=== PATIENT | female | born 1955 | race Caucasian/White ===

== ENCOUNTER → 2017-12-15 | Outpatient (CLI) | payer OTHER ==
[~2017-12-15] MED LIST: AZEL205. NS
== END ==
LOC: LAB 11:29
PROVIDERS: ATTEND Otolaryngology
DX: H83.2X1 Labyrinthine dysfunction, right ear (principal); R26.81 Unsteadiness on feet
CPT/HCPCS: 36415; 82565

== ENCOUNTER → 2017-12-16 | Outpatient (CLI) | payer OTHER ==
[~2017-12-16] MED LIST changes: +GADOBENATE 529MG/1ML 15ML VIAL IVP ONE
--- NOTE | 2017-12-16 14:53 | RADIOLOGY IMAGING REPORT ---
FACILITY: [facility] PATIENT NAME: Yahaira Mcdermott : 1955 MR: [id number] V: [id number] EXAM DATE: ORDERING PHYSICIAN: JOSEPH MCLAUGHLIN TECHNOLOGIST: Location: [facility] Patient: Yahaira Mcdermott : 1955 Visit/Account:[id number] Date of Sevice: 12/16/2017 EXAMINATION: MRI Brain without intravenous contrast MRI Brain with intravenous contrast HISTORY: Lack of coordination. Dizziness. COMPARISON: None available. TECHNIQUE: Multi-planar, multi-sequence brain MRI was performed before and after IV gadolinium. CONTRAST: 15 mL of IV MultiHance FINDINGS: Brain volume: Normal. Sagittal midline structures: Negative. Ventricles: Negative. Acute ischemic changes: None. Hemorrhage: None. Masses / edema: None. Enhancement: Negative. Macario-white: Negative. White matter: Mild patchy FLAIR hyperintensity in the frontal lobes. Vessels: Negative. Extra-axial: Negative. Calvarium / scalp: Negative. Skull base: Negative. Visualized sinuses / orbits: Negative. Visualized upper neck: Negative. IMPRESSION: 1. Mild chronic white matter changes in the frontal lobes. This is nonspecific but most likely repr esents chronic microvascular ischemia. 2. Otherwise normal brain MRI without and with IV contrast. Report Dictated By: Yong Viveros MD at 12/16/2017 2:43 PM Report E-Signed By: Yong Viveros MD at 12/16/2017 2:48 PM WSN:[id number]
== END ==
LOC: MRI 07:11
PROVIDERS: ATTEND Otolaryngology
DX: R90.82 White matter disease, unspecified (principal)
CPT/HCPCS: 70553; A9577

== ENCOUNTER → 2018-02-25 | Outpatient (CLI) | payer OTHER ==
[~2018-02-25] MED LIST changes: -GADOBENATE 529MG/1ML 15ML VIAL IVP ONE
--- NOTE | 2018-02-26 10:47 | RADIOLOGY IMAGING REPORT ---
FACILITY: [facility] [place] PATIENT NAME: RAMONA KUHN : [id number] MR: [id number] V: [id number] EXAM DATE: ORDERING PHYSICIAN: ZACK ONEAL TECHNOLOGIST: Blanka Johnson PROCEDURE:BILATERAL DIGITAL SCREENING MAMMOGRAM WITH CAD ASSISTED INTERPRETATION & 3D TOMOSYNTHESIS COMPARISON:Prior mammograms 02/03/17, 01/17/16, 12/29/14, 11/24/13, 06/04/12, 06/03/12. INDICATIONS:SCREENING FINDINGS: Moderately heterogeneous fibroglandular tissue is seen throughout the breasts. The parenchymal pattern has remained stable allowing for difference in mammographic technique & patient positioning. There is no evidence of malignant appearing mass, malignant appearing calcifications or other secondary sign of malignancy in either breast. DIAGNOSTIC CATEGORY 1--NEGATIVE. RECOMMENDATIONS: ROUTINE MAMMOGRAM AND CLINICAL EVALUATION. IMPRESSION: BIRADS 1: Negative. No significant abnormality is seen. Dictated by: Amarilis Alexander M.D. on 02/25/2018 at 14:29 Transcribed by: RASHAWN on 02/25/2018 at 14:37 Approved by: Amarilis Alexander M.D. on 02/26/2018 at 10:46 [facility]
== END ==
LOC: MAMO 01:48
PROVIDERS: ATTEND Physician Assistant
DX: Z12.31 Encounter for screening mammogram for malignant neoplasm of breast (principal); Z80.3 Family history of malignant neoplasm of breast
CPT/HCPCS: 77063; 77067